=== PATIENT | male | born 1965 | race Caucasian/White ===

== ENCOUNTER 2022-01-15 06:36 | Day surgery (SDC) | payer OTHER, SELFPAY ==
[2022-01-08 10:47] VITALS: BMI 25.7
--- NOTE | 2022-01-14 13:02 | HO.ANESPROP2 ---
Documented by User: Marylin Goss NP 01/14/22 13:03 HPI - Anesthesia Eval Consult details Narrative: 56yo M for Upper End[facility] Past Medical History Medical History (Updated 01/08/22 @ 10:44 by Dayana Hillman RN) Bifascicular block Esophageal stricture Gastroparesis Mixed connective tissue disease Tonsillar cancer Surgical History Surgical History (Updated 01/08/22 @ 10:44 by Dayana Hillman RN) History of esophagogastroduodenoscopy (EGD) Hx of tonsillectomy Hx of umbilical hernia repair Social History Social History Are you a primary ambulatory care coordinator to a significant other at home: No Do you presently have visiting nurse or other home services: No Patient Tobacco Use Status: Never used Tobacco Use of substances other than those prescribed or required for medical reasons: No Have you been hit, kicked, punched, or otherwise hurt by someone within the past year? 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 and has had them repaired) Meds Allergies Allergy/AdvReac Type Severity Reaction Status Date / Time No Known Allergies Allergy Verified 01/08/22 10:49 Home Medications Medication Instructions Recorded Confirmed Last Taken Type celecoxib 200 mg capsule 200 mg PO BEDTIME 01/08/22 01/08/22 Unknown History hydroxychloroquine 200 mg tablet 400 mg PO BEDTIME 01/08/22 01/08/22 Unknown History nebivolol 5 mg tablet 5 mg PO BEDTIME 01/08/22 01/08/22 Unknown History tamsulosin 0.4 mg capsule (Flomax) 0.4 mg PO BEDTIME 01/08/22 01/08/22 Unknown History valacyclovir 500 mg tablet 500 mg PO DAILY PRN herpes outbreak 01/08/22 01/08/22 Unknown History Exam Exam Date and Time: January 14, 2022 1302 Height,Weight and Vital Signs: Height 5 ft 11 in Weight 83.915 kg Assessment and Plan Assessment Anesthesia Assessment: Chart Reviewed Documented by User: Christy Du MD 01/15/22 07:23 [facility] Past Medical History Medical History (Updated 01/08/22 @ 10:44 by Dayana Hillman, JORDAN) Bifascicular block Esophageal stricture Gastroparesis Mixed connective tissue disease Tonsillar cancer Family History Family history of problems with anesthesia: No Surgical History Surgical History (Updated 01/08/22 @ 10:44 by Dayana Hillman RN) History of esophagogastroduodenoscopy (EGD) Hx of tonsillectomy Hx of umbilical hernia repair History of Problems with Anesthesia: No Social History Social History Are you a primary ambulatory care coordinator to a significant other at home: No Do you presently have visiting nurse or other home services: No Patient Tobacco Use Status: Never used Tobacco Use of substances other than those prescribed or required for medical reasons: No Have you been hit, kicked, punched, or otherwise hurt by someone within the past year? 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 and has had them repaired) Meds Allergies Allergy/AdvReac Type Severity Reaction Status Date / Time No Known Allergies Allergy Verified 01/08/22 10:49 Home Medications Medication Instructions Recorded Confirmed Last Taken Type celecoxib 200 mg capsule 200 mg PO BEDTIME 01/08/22 01/08/22 Unknown History hydroxychloroquine 200 mg tablet 400 mg PO BEDTIME 01/08/22 01/08/22 Unknown History nebivolol 5 mg tablet 5 mg PO BEDTIME 01/08/22 01/08/22 Unknown History tamsulosin 0.4 mg capsule (Flomax) 0.4 mg PO BEDTIME 01/08/22 01/08/22 Unknown History valacyclovir 500 mg tablet 500 mg PO DAILY PRN herpes outbreak 01/08/22 01/08/22 Unknown History Exam Airway Mallampati Class: II (Front teeth with some reconstruction) TM Dist: >3cm Neck ROM: Full Heart: rrr Lungs: cta Assessment and Plan Assessment Anesthesia Assessment: Anesthesia Plan Discussed Final Anesthetic Review Family History of Problems with Anesthesia: No History of Problems with Anesthesia: No NPO: Yes ASA Class: III Final Preanesthetic Review: No Changes in Pt Med Stat, Meds/Allgs Chart Reviewed and Consent Obtained/Reviewed Patient Risk: Intermediate Procedure Risk: Intermediate Anesthetic Plan Anesthetic Plan: MAC: Disposition: Standard PACU
--- NOTE | 2022-01-15 06:23 | MHC.SHP ---
Pre-Procedural Eval Section A Date of Service: 01/15/22 Section B Chief Complaint: Esophageal obstruction Details of Present Illness: hx of dysphagia and recurrent need for dilation Relevant Family History (Specify if Yes): No Relevant Social History: None Present Medications: see Short Stay Collaborative assessment Medical History: Significant History (Bifascicular block Esophageal stricture Gastroparesis Mixed connective tissue disease Tonsillar cancer) History of Previous Operations: Relevant previous surgery/procedure and date(s) (History of esophagogastroduodenoscopy (EGD) Hx of tonsillectomy Hx of umbilical hernia repair, head and neck surgery ) Allergies: Allergies Allergy/AdvReac Type Severity Reaction Status Date / Time No Known Allergies Allergy Verified 01/08/22 10:49 Review of Systems Sugical H&P ROS: Negative: Constitution, Cardiovascular, Respiratory, Neurological, Psychiatric, Hem-Onc, Allergic/Immunologic, Gastrointestinal, Genitourinary, Musculoskeletal, Integumentary, Endocrine and Eyes/Ears/Nose/Throat Exam Surgical H&P Exam: Normal: HEENT, Normal: Heart, Normal: Lungs, Normal: Extremities, Normal: Abdomen, Normal: Skin and Normal: Neurological Plan Diagnosis/Plan: Unchanged I have reviewed the history and physical and performed a pertinent physical examination on my patient. No changes have occurred unless specified.
[2022-01-15 07:14] VITALS: BP 103/59; PULSE 68; RESP 16; TEMP 36.1; O2SAT 100
[2022-01-15] MEDS: Lactated Ringers 1,000 ML 100 ML IVCONT (07:21)
--- NOTE | 2022-01-15 07:46 | W.PM.OPN ---
Operative Note Operative Note Date of Service: 01/15/22 Narrative: Procedure Description: EGD Indication: dysphagia Anesthesia: MAC FLEXIBLE TRANSORAL UPPER GASTROINTESTINAL ENDOSCOPY UPPER ENDOSCOPY Consent: Indications for the procedure and potential complications of bleeding, perforation, reaction to medications and missed diagnosis were discussed with the patient and informed consent was obtained. Instrument: Olympus GIF H 190 J mid size upper endoscope Monitoring: Vital signs and clinical assessment, continuous EKG monitoring, Pulse oximetry, Carbon Dioxide monitoring and blood pressure monitoring were done throughout the procedure. Procedure: The patient was placed in the left lateral decubitis position and pre-procedure medications were administered and a bite block was placed. The endoscope was inserted into the mouth and advanced under direct vision to the third part of duodenum. A careful inspection was made as the upper endoscope was withdrawn including a retroflexed examination of the proximal stomach; Findings and interventions are described below. Findings: Larynx:normal Esophagus: GE junction at 42 cm, diaphragm hiatus at 44 cm, consistent with 2 cm hiatal hernia, mild erythema and bogginess at GEJ bx taken as well as from distal and proximal esophagus. Using savary wire 18 mm bougie passed with small tear seen at GEJ. Stomach: Patchy gastric erythema. Biopsies were obtained. Grade 2 flap valve on retroflexed examination of the cardia. Pylorus seemed tight and dilated to 20 mm with balloon. Duodenum: Normal bulb and descending duodenum, bx taken Intervention: Biopsies as noted above, savary dilation, balloon dilation Impression/Findings: gastritis small hiatal hernia esophagitis PLAN: consider low dose PPI dilation prn as needed can use tylenol or magic mouthwash for pain and discomfort as needed
[2022-01-15 08:15] VITALS: PULSE 65; RESP 14; TEMP 36.4; O2SAT 97
[2022-01-15 08:30] VITALS: BP 115/71; PULSE 67; RESP 18; TEMP 36.4; O2SAT 98
== END 2022-01-15 09:03 | disposition home or self-care (01) ==
PROVIDERS: PCP Internal Medicine; Visit Provider Internal Medicine Gastroenterology
PROC: 0DJ08ZZ Inspection of Upper Intestinal Tract, Via Natural or Artificial Opening Endoscopic (ICD-10-PCS; CPT 43235; principal; 2022-01-15 07:30)
DX: K22.2 Esophageal obstruction (principal); R13.10 Dysphagia, unspecified; K31.1 Adult hypertrophic pyloric stenosis; K20.80 Other esophagitis without bleeding; K29.50 Unspecified chronic gastritis without bleeding; K31.84 Gastroparesis; K44.9 Diaphragmatic hernia without obstruction or gangrene; M35.1 Other overlap syndromes; I45.2 Bifascicular block; Z85.818 Personal history of malignant neoplasm of other sites of lip, oral cavity, and pharynx; Z79.899 Other long term (current) drug therapy
CPT/HCPCS: 43248; 43245; 43239; 88305; 88342; C1726; C1769